=== PATIENT | female | born 1940 ===

== ENCOUNTER 2018-06-15 06:25 | Observation (INO) | payer MEDICARE, MEDICAID ==
[2018-06-15 06:57] VITALS: BMI 30.2
--- NOTE | 2018-06-15 08:24 | CP.PCM.CON ---
History of Present Illness - History of Present Illness History of Present Illness: Orthopedic consultation Dr. Chao 77F complains of right shoulder pain after fall in [place] 06/06/2018, found to have proximal humerus fracture seen in [facility]. She comes to the ER today complaining continued shoulder pain. RHD. Denies numbness/tingling. Denies Cp/SOB/dizziness. PMH: HTN, DM PSH: TKR NKDA Review of Systems - Review of Systems All systems: reviewed and no additional remarkable complaints except - Musculoskeletal Musculoskeletal: As Per HPI Past Patient History - Past Medical History & Family History Past Medical History?: Yes Past Family History: Reviewed and not pertinent - Past Social History Smoking Status: Never Smoked - CARDIAC Hx Hypertension: Yes - ENDOCRINE/METABOLIC Hx Diabetes Mellitus Type 2: Yes - PSYCHIATRIC Hx Substance Use: No - SURGICAL HISTORY Hx Joint Replacement: Yes (TKR) Meds Allergies/Adverse Reactions: Allergies Allergy/AdvReac Type Severity Reaction Status Date / Time No Known Allergies Allergy Verified 06/15/18 06:57 Physical Exam - Constitutional Appears: Well, No Acute Distress - Head Exam Head Exam: ATRAUMATIC - Neck Exam Neck exam: Positive for: Full Rom, Normal Inspection - Respiratory Exam Respiratory Exam: NORMAL BREATHING PATTERN - Cardiovascular Exam Additional comments: +radial pulse RUE - Expanded Upper Extremities Exam Right Shoulder exam: ecchymosis, swelling, tenderness Neuro motor exam: finger 2-5 abduction intact, thumb abduction, thumb IP flexion intact, thumb opposition intact, wrist extension intact Neurosensory exam: median nerve intact, radial nerve intact, ulnar nerve intact (sensation to ax n distrib lateral shoulder intact) Vascular exam: radial pulse - Neurological Exam Neurological exam: Alert, Oriented x3 - Psychiatric Exam Psychiatric exam: Normal Affect, Normal Mood - Skin Skin Exam: Dry, Intact, Warm Additional comments: noted ecchymosis to RUE Results - Vital Signs Recent Vital Signs: Last Vital Signs Temp 98.9 F 06/15/18 06:35 Pulse 96 H 06/15/18 06:35 Resp 18 06/15/18 06:35 BP 172/82 H 06/15/18 07:22 Pulse Ox 98 06/15/18 06:35 - Impressions Impression: atient Name / ID : MEHNAZ JOYNER Miguel / [id number] Exam Date : 06/08/2018 16:23:47 ( Approved ) Study Comment : Sex / Age : F / 77Y Creator : Julia Tapia MD Dictator : Julia Tapia MD Behavioral Technician : Perforator : Julia Tapia MD Approver2 : Report Date : 06/08/2018 16:35:19 My Comment : Date of service: 06/08/2018 PROCEDURE: Radiographs of the Right Shoulder HISTORY: previous fall COMPARISON: No prior. FINDINGS: BONES: There is an acute comminuted impacted fracture in the neck of the humerus. Bone alignment is normal. There is diffuse bone demineralization. JOINTS: Glenohumeral and acromioclavicular joints preserved. Mild degenerative osteoarthritis. SOFT TISSUES: Normal. OTHER FINDINGS: None. IMPRESSION: Acute comminuted impacted fracture in the neck of the humerus without evidence for dislocation. Assessment & Plan (1) Closed fracture of neck of right humerus Assessment and Plan: case d/w Dr. chao for total shoulder replacement today pending med/cardiac optimization labs/imaging/echo/ekg pending NPO T&C Status: Acute
--- NOTE | 2018-06-15 08:25 | ED PDOC ---
Upper Extremity Pain/Injury Time Seen by Provider: 06/15/18 07:22 Chief Complaint (Nursing): Upper Extremity Problem/Injury Chief Complaint (Provider): Upper Extremity Problem/Injury History Per: Family History/Exam Limitations: no limitations Onset/Duration Of Symptoms: Days (x7) Current Symptoms Are (Timing): Still Present Additional Complaint(s): 77 year old female with past history of diabetes and hypertension, arrives to the emergency department with her family, for severe pain of right shoulder. =Patient sustained a right humeral neck fracture status post fall injury on 06/08/18 in which she was evaluated at [facility]. The family states that she was seen by orthopedist's office on 06/12/18 then told to come to the ED if pain is severe and unable to control at home. Patient, otherwise, offers no additional complaints. PCP: Dr. Artuor Cohen Ortho: Dr. Chao Past Medical History Reviewed: Historical Data, Nursing Documentation, Vital Signs Vital Signs: Last Vital Signs Temp 98.9 F 06/15/18 06:35 Pulse 96 H 06/15/18 06:35 Resp 18 06/15/18 06:35 BP 172/82 H 06/15/18 07:22 Pulse Ox 98 06/15/18 06:35 - Medical History PMH: Diabetes, HTN - Surgical History Surgical History: Denies: No Surg Hx Other surgeries: bilateral knees - Family History Family History: States: Unknown Family Hx - Social History Current smoker - smoking cessation education provided: No Alcohol: None Drugs: Denies - Immunization History Hx Tetanus Toxoid Vaccination: No Hx Influenza Vaccination: No Hx Pneumococcal Vaccination: No - Home Medications Home Medications: Ambulatory Orders Medication Instructions Recorded Glipizide [Glipizide Xl] 5 mg PO DAILY 06/08/18 Metoprolol Succinate [Metoprolol 100 mg PO DAILY 06/08/18 Succinate Xl] Nebivolol [Bystolic] 10 mg PO DAILY 06/08/18 Omeprazole 20 mg PO DAILY 06/08/18 Lisinopril/Hydrochlorothiazide 1 tab PO DAILY 06/15/18 [Lisinopril-Hctz 20-12.5 mg Tab] - Allergies Allergies/Adverse Reactions: Allergies Allergy/AdvReac Type Severity Reaction Status Date / Time No Known Allergies Allergy Verified 06/15/18 06:57 Review of Systems ROS Statement: Except As Marked, All Systems Reviewed And Found Negative Musculoskeletal: Positive for: Shoulder Pain (right-sided) Physical Exam - Reviewed Nursing Documentation Reviewed: Yes Vital Signs Reviewed: Yes - Physical Exam Appears: Positive for: Non-toxic, No Acute Distress Skin: Positive for: Warm, Dry Eye Exam: Positive for: EOMI Neck: Positive for: Decreased ROM Respiratory: Positive for: Normal Breath Sounds Pulses-Radial (R): 3+/4+ Gastrointestinal/Abdominal: Positive for: Soft. Negative for: Tenderness Pelvic Exam: Negative for: External Exam Normal Extremity: Positive for: Tenderness (right shoulder with limited ROM secondary to pain), Swelling (and ecchymosis to rigth upper arm and shoulder). Negative for: Normal ROM (right arm) Neurologic/Psych: Positive for: Alert, Oriented (x3). Negative for: Motor/Sensory Deficits - Laboratory Results Result Diagrams: 06/15/18 08:20 - ECG O2 Sat by Pulse Oximetry: 98 (RA) Pulse Ox Interpretation: Normal Medical Decision Making Medical Decision Making: Initial Impression: Right Humeral neck fracture Initial Plan: * Labs * EKG * CXR Time: 799 --Dr. Chao paged for consult. Spoke to ortho Kandice BURGOS, who will see patient at bedside. Time: 811 --Case discussed with hospitalist, Dr. Ryder, for admission. Time: 846 --Discussed case with Dr. Chao who recommends CT shoulder and admission for orthopedic evaluation. He already spoke with Dr. Cohen and is agreeable to plan with additional request for consult with Dr. Medeiros for cardiology. Scribe Attestation: Documented by Radha Aquino, acting as a scribe for Veena Lopez MD. Provider Scribe Attestation: All medical record entries made by the Scribe were at my direction and personally dictated by me. I have reviewed the chart and agree that the record accurately reflects my personal performance of the history, physical exam, medical decision making, and the department course for this patient. I have also personally directed, reviewed, and agree with the discharge instructions and disposition. Disposition - Clinical Impression Clinical Impression: Closed fracture of neck of right humerus - Patient ED Disposition Is Patient to be Admitted: Yes Discussed With : Darrick Ryder Doctor Will See Patient In The: ED Counseled Patient/Family Regarding: Studies Performed, Diagnosis - Disposition Disposition Time: 08:00 Condition: FAIR - Pt Status Changed To: Hospital Disposition Of: Inpatient - Admit Certification Admit to Inpatient:: After my assessment, the patient will require hospitalization for at least two midnights. This is because of the severity of symptoms shown, intensity of services needed, and/or the medical risk in this patient being treated as an outpatient. - POA Present On Arrival: Falls Or Trauma
[2018-06-15 08:32] LABS: BASO % 0.5 % (0.0-2.0); EOS # 0.1 K/uL (0.0-0.7); EOS % 1.7 % (0.0-4.0); HEMOGLOBIN 9.9 g/dL (12.0-16.0); MEAN CELL VOLUME 83.4 fl (81.0-99.0); MEAN CORPUSCULAR HEMOGLOBIN 27.3 pg (27.0-31.0); MEAN CORPUSCULAR HGB CONC 32.8 g/dL (33.0-37.0); MEAN PLATELET VOLUME 8.8 fl (7.2-11.7); MONO # 0.5 K/uL (0.0-0.8); MONO % 6.9 % (0.0-10.0); NEUT # 6.1 K/uL (1.8-7.0); NEUT % 77.9 % (50.0-75.0); RBC 3.62 Mil/uL (3.80-5.20); RED CELL DISTRIBUTION WIDTH 15.2 % (11.5-14.5); WHITE BLOOD COUNT 7.9 K/uL (4.8-10.8)
[2018-06-15 08:44] LABS: PROTHROMBIN TIME 11.9 Seconds (9.8-13.1)
[2018-06-15 08:46] LABS: PARTIAL THROMBOPLASTIN TIME 27.6 Seconds (25.6-37.1)
[2018-06-15 09:25] LABS: SQUAMOUS EPITHIAL 4 /hpf (0-5); URINE BACTERIA RARE (<OCC); URINE BILIRUBIN NEGATIVE (NEGATIVE); URINE BLOOD NEGATIVE (NEGATIVE); URINE CLARITY CLEAR (Clear); URINE COLOR STRAW (YELLOW); URINE GLUCOSE (UA) NEG (NEGATIVE); URINE LEUKOCYTE ESTERASE NEG Leu/uL (Negative); URINE PROTEIN NEGATIVE (NEGATIVE); URINE UROBILINOGEN 0.2-1.0 mg/dL (0.2-1.0)
[2018-06-15 09:42] LABS: BLOOD UREA NITROGEN 20 mg/dl (7-17); CALCIUM 9.3 mg/dL (8.4-10.2); GFR NON-AFRICAN AMERICAN 54
--- NOTE | 2018-06-15 10:30 | CP.PCM.CON ---
History of Present Illness - History of Present Illness History of Present Illness: This 77-year-old lady with a history of diabetes and hypertension for more than 12 years who is quite active (cannot walk more than 8-10 blocks and climb 4 flights of stairs to her apartment on couple of occasions every day without any difficulty) has come to the hospital after having suffered a fall approximately 10 days back during which she sustained a right shoulder injury. X-rays have shown evidence of a fracture humeral head on the right side. This consultation was requested as part of her evaluation prior to surgery. The patient has no prior hospitalization for cardiac or abdominal issues. There is no prior history of chest pain or myocardial infarction or symptoms of congestive cardiac failure. She does not take aspirin every day. She has taken her antihypertensives and antidiabetic medications regularly and reports that her blood pressure and blood sugar levels are fairly well controlled. Physical examination shows an elderly lady who is alert awake coherent afebrile and is able to breathe comfortably at 14 breaths/min while lying flat in bed and carry on a conversation. Her heart rate was 82 bpm regular and her blood pressure was 152/74 mmHg. Her jugular venous pressure was not elevated and there was no edema over her lower extremity. The pedal pulses were well felt. There were no carotid bruits. The apex was not palpable. The first and second heart sounds were normal. There was no murmur or gallop. There were no rales. Her abdomen was soft and liver and spleen are not palpable. Her electrocardiogram showed sinus rhythm with poor progression of R wave from V1 to V3. No ST-T abnormalities were detected. Lab data shows a normocytic normochromic anemia with a hemoglobin of 9.9 g probably due to bleeding at fracture site. Her BUN/creatinine were normal and electrolytes are normal. Impression: fractured right humeral head. Diabetes mellitus and hypertension. The patient is stable to proceed with the planned surgery under necessary anesthesia. Past Patient History - Past Medical History & Family History Past Medical History?: Yes Past Family History: Reviewed and not pertinent - Past Social History Alcohol: None Drugs: Denies - CARDIAC Hx Hypertension: Yes - ENDOCRINE/METABOLIC Hx Endocrine Disorders: Yes - PSYCHIATRIC Hx Substance Use: No - SURGICAL HISTORY Hx Joint Replacement: Yes (TKR) Meds Allergies/Adverse Reactions: Allergies Allergy/AdvReac Type Severity Reaction Status Date / Time No Known Allergies Allergy Verified 06/15/18 06:57 Results - Vital Signs Recent Vital Signs: Last Vital Signs Temp 97.6 F 06/15/18 09:36 Pulse 80 06/15/18 09:36 Resp 20 06/15/18 09:36 BP 146/76 06/15/18 09:36 Pulse Ox 98 06/15/18 09:36 - Labs Result Diagrams: 06/15/18 08:20 06/15/18 08:42 Labs: Laboratory Results - last 24 hr 06/15/18 06/15/18 06/15/18 08:10 08:20 08:20 WBC 7.9 RBC 3.62 L Hgb 9.9 L Hct 30.2 L MCV 83.4 MCH 27.3 MCHC 32.8 L RDW 15.2 H Plt Count 281 MPV 8.8 Neut % (Auto) 77.9 H Lymph % (Auto) 13.0 L [place] % (Auto) 6.9 Eos % (Auto) 1.7 Baso % (Auto) 0.5 Neut # (Auto) 6.1 Lymph # (Auto) 1.0 [place] # (Auto) 0.5 Eos # (Auto) 0.1 Baso # (Auto) 0.0 PT 11.9 INR 1.0 APTT 27.6 Sodium Potassium Chloride Carbon Dioxide Anion Gap BUN Creatinine Est GFR ( Amer) Est GFR (Non-Af Amer) Random Glucose Calcium Urine Color Urine Clarity Urine pH Ur Specific [place] Urine Protein Urine Glucose (UA) Urine Ketones Urine Blood Urine Nitrate Urine Bilirubin Urine Urobilinogen Ur Leukocyte Esterase Urine RBC (Auto) Urine Microscopic WBC Ur Squamous Epith Cells Urine Bacteria Blood Type AB POSITIVE Blood Type Confirm Antibody Screen Negative Crossmatch See Detail BBK History Checked No verified bt 06/15/18 06/15/18 06/15/18 08:42 08:45 09:05 WBC RBC Hgb Hct MCV MCH MCHC RDW Plt Count MPV Neut % (Auto) Lymph % (Auto) [place] % (Auto) Eos % (Auto) Baso % (Auto) Neut # (Auto) Lymph # (Auto) [place] # (Auto) Eos # (Auto) Baso # (Auto) PT INR APTT Sodium 138 Potassium 4.9 Chloride 105 Carbon Dioxide 25 Anion Gap 13 BUN 20 H Creatinine 1.0 Est GFR ( Amer) > 60 Est GFR (Non-Af Amer) 54 Random Glucose 96 Calcium 9.3 Urine Color Straw Urine Clarity Clear Urine pH 8.0 Ur Specific [place] 1.011 Urine Protein Negative Urine Glucose (UA) Neg Urine Ketones Negative Urine Blood Negative Urine Nitrate Negative Urine Bilirubin Negative Urine Urobilinogen 0.2-1.0 Ur Leukocyte Esterase Neg Urine RBC (Auto) 1 Urine Microscopic WBC 1 Ur Squamous Epith Cells 4 Urine Bacteria Rare Blood Type Blood Type Confirm AB POSITIVE Antibody Screen Crossmatch BBK History Checked
--- NOTE | 2018-06-15 10:40 | CP.PCM.HP ---
History of Present Illness - History of Present Illness History of Present Illness: CC: Right shoulder pain 77 yo female seen in the ED with PMHx of diabetes and hypertension (>12 years) for right shoulder injury. Patient states on Jun 08 while going up the stairs she had sustained a fall and had immediate right shoulder pain. Patient has been following up with Dr. Chao as outpatient. Patient denies trauma anywhere else. Denies losing consciousness. States she has been wearing an arm supporter for the last ten days. Patients daughter states x-rays show fracture of humeral head on the right upper extremity. Patient admits to being NPO. Patient denies taking daily blood thinners. Admits to seeing her PMD regularly. Patient admits to being able to walk a couple of blocks without any difficulty. Denies seeing a cottrell operator in the past; denies heart disease. Denies any recent f/n/v/sob/cp/palpitations/diarrhea/constipation/headache. PMD: Dr. Arturo Cohen Ortho: Dr. Chao Pmhx: Htn, DM Pshx: Total knee replacement b/l Allergies: Denies Social hx: denies smoking or drinking alcohol Present on Admission - Present on Admission Any Indicators Present on Admission: No History of DVT/PE: No History of Uncontrolled Diabetes: No Review of Systems - Constitutional Constitutional: As Per HPI. absent: Chills, Fever, Weakness Past Patient History - Past Medical History & Family History Past Medical History?: Yes Past Family History: Reviewed and not pertinent - Past Social History Alcohol: None Drugs: Denies - CARDIAC Hx Hypertension: Yes - ENDOCRINE/METABOLIC Hx Endocrine Disorders: Yes - PSYCHIATRIC Hx Substance Use: No - SURGICAL HISTORY Hx Joint Replacement: Yes (TKR) Meds Allergies/Adverse Reactions: Allergies Allergy/AdvReac Type Severity Reaction Status Date / Time No Known Allergies Allergy Verified 06/15/18 06:57 Physical Exam - Constitutional Appears: Well, Non-toxic, No Acute Distress - Head Exam Head Exam: ATRAUMATIC, NORMOCEPHALIC - Eye Exam Eye Exam: EOMI, Normal appearance Pupil Exam: NORMAL ACCOMODATION - ENT Exam ENT Exam: Mucous Membranes Moist - Respiratory Exam Respiratory Exam: Clear to Auscultation Bilateral. absent: Rales, Rhonchi, Wheezes - Cardiovascular Exam Cardiovascular Exam: REGULAR RHYTHM, +S1, +S2 - GI/Abdominal Exam GI & Abdominal Exam: Normal Bowel Sounds - Expanded Upper Extremities Exam Right Shoulder exam: ecchymosis, tenderness Upper Arm exam: ecchymosis, erythema Elbow exam: ecchymosis Forearm Wrist exam: ecchymosis Results - Vital Signs Recent Vital Signs: Last Vital Signs Temp 97.6 F 06/15/18 09:36 Pulse 80 06/15/18 09:36 Resp 20 06/15/18 09:36 BP 146/76 06/15/18 09:36 Pulse Ox 98 06/15/18 09:36 - Labs Result Diagrams: 06/15/18 08:20 06/15/18 08:42 Labs: Laboratory Results - last 24 hr 06/15/18 06/15/18 06/15/18 08:10 08:20 08:20 WBC 7.9 RBC 3.62 L Hgb 9.9 L Hct 30.2 L MCV 83.4 MCH 27.3 MCHC 32.8 L RDW 15.2 H Plt Count 281 MPV 8.8 Neut % (Auto) 77.9 H Lymph % (Auto) 13.0 L [place] % (Auto) 6.9 Eos % (Auto) 1.7 Baso % (Auto) 0.5 Neut # (Auto) 6.1 Lymph # (Auto) 1.0 [place] # (Auto) 0.5 Eos # (Auto) 0.1 Baso # (Auto) 0.0 PT 11.9 INR 1.0 APTT 27.6 Sodium Potassium Chloride Carbon Dioxide Anion Gap BUN Creatinine Est GFR ( Amer) Est GFR (Non-Af Amer) Random Glucose Calcium Urine Color Urine Clarity Urine pH Ur Specific [place] Urine Protein Urine Glucose (UA) Urine Ketones Urine Blood Urine Nitrate Urine Bilirubin Urine Urobilinogen Ur Leukocyte Esterase Urine RBC (Auto) Urine Microscopic WBC Ur Squamous Epith Cells Urine Bacteria Blood Type AB POSITIVE Blood Type Confirm Antibody Screen Negative Crossmatch See Detail BBK History Checked No verified bt 06/15/18 06/15/18 06/15/18 08:42 08:45 09:05 WBC RBC Hgb Hct MCV MCH MCHC RDW Plt Count MPV Neut % (Auto) Lymph % (Auto) [place] % (Auto) Eos % (Auto) Baso % (Auto) Neut # (Auto) Lymph # (Auto) [place] # (Auto) Eos # (Auto) Baso # (Auto) PT INR APTT Sodium 138 Potassium 4.9 Chloride 105 Carbon Dioxide 25 Anion Gap 13 BUN 20 H Creatinine 1.0 Est GFR ( Amer) > 60 Est GFR (Non-Af Amer) 54 Random Glucose 96 Calcium 9.3 Urine Color Straw Urine Clarity Clear Urine pH 8.0 Ur Specific [place] 1.011 Urine Protein Negative Urine Glucose (UA) Neg Urine Ketones Negative Urine Blood Negative Urine Nitrate Negative Urine Bilirubin Negative Urine Urobilinogen 0.2-1.0 Ur Leukocyte Esterase Neg Urine RBC (Auto) 1 Urine Microscopic WBC 1 Ur Squamous Epith Cells 4 Urine Bacteria Rare Blood Type Blood Type Confirm AB POSITIVE Antibody Screen Crossmatch BBK History Checked Assessment & Plan - Assessment and Plan (Free Text) Assessment: 77 year old female patient, with PMHx of DM, HTN seen and evaluated in the ED s/p right humeral fracture 06/08. Patient for OR today with Dr. Chao Plan: 1) Right shoulder pain - Acute - Plan for OR today for R total shoulder replacement with Dr. Chao - Patient medically optimized for surgery - Cardiology consult ordered; Dr. Medeiros cleared the patient for surgery. - CBC, CXR, EKG reviewed - Blood type AB Positive Hgb 9.9 - Upper extremity CT ordered and reviewed; comminuted fracture of humeral head and neck - NPO status confirmed 2) DMII - Chronic - HgA1c Ordered - C/w glipizide 3) HTN - Chronic -C/w lisinopril/hctz 4) DVT prophylaxis: -SCDs
--- NOTE | 2018-06-15 10:54 | CT ---
Date of service: 06/15/2018 PROCEDURE: Right upper extremity CT HISTORY: right humerus fracture COMPARISON: None. TECHNIQUE: 2.5 mm axial acquisition and display. Coronal and sagittal reconstructions. Dose report (mGy-cm): 1379.31 FINDINGS: Impacted, comminuted fracture involving the right humeral neck and head. Major fracture fragments are anatomically aligned. Small fracture fragments reside in the joint space between the glenoid and humeral head. Additional vol stent fracture fragments affect the greater tuberosity. Additional fracture fragments are seen interposed between the superior aspect of the glenoid and the adjacent acromioclavicular joint. Soft tissue swelling identified. Joint effusion/hemarthrosis tests to the acuity of fracture. Preservation of the acromioclavicular joint. IMPRESSION: Impacted, comminuted fracture affecting right humeral head and neck. Additional information provided above.
--- NOTE | 2018-06-15 15:08 | RAD ---
Date of service: 06/15/2018 HISTORY: preop COMPARISON: No prior. TECHNIQUE: Chest PA and lateral FINDINGS: LUNGS: No active pulmonary disease. PLEURA: No significant pleural effusion identified. No pneumothorax apparent. CARDIOVASCULAR: Calcific atherosclerotic changes are seen related to the thoracic aorta. Normal cardiac size. No pulmonary vascular congestion. OSSEOUS STRUCTURES: Heterotopic bone suggestive of callus is seen related to fracture of the proximal right humerus. VISUALIZED UPPER ABDOMEN: Normal. OTHER FINDINGS: None. IMPRESSION: No acute cardiopulmonary disease. Callus formation is question developing related to proximal right humeral fracture.
--- NOTE | 2018-06-15 16:27 | CARD ---
APPROVED REPORT Date of service: 06/15/2018 EKG Measurement Heart [id number] <Conclusion> Normal sinus rhythm Normal ECG
--- NOTE | 2018-06-15 16:32 | CARD ---
APPROVED REPORT Date of service: 06/15/2018 EKG Measurement Heart [id number] <Conclusion> Normal sinus rhythm Cannot rule out Anterior infarct, age undetermined Abnormal ECG
--- NOTE | 2018-06-15 16:44 | CARD ---
APPROVED REPORT Date of service: 06/15/2018 EXAM: Two-dimensional and M-mode echocardiogram with Doppler and color Doppler. Other Information Quality : GoodRhythm : NSR INDICATION Hypertension/HCVD 2D DIMENSIONS IVSd1.00 (0.7-1.1cm)LVDd4.43 (3.9-5.9cm) LVOT Diameter2.32 (1.8-2.4cm)PWd1.18 (0.7-1.1cm) IVSs0.94 (0.8-1.2cm)LVDs3.98 (2.5-4.0cm) FS (%) 10.0 %PWs0.81 (0.8-1.2cm) M-Mode DIMENSIONS Left Atrium (MM)3.18 (2.5-4.0cm)IVSd1.00 (0.7-1.1cm) Aortic Root2.74 (2.2-3.7cm)LVDd3.71 (4.0-5.6cm) PWd1.24 (0.7-1.1cm)IVSs1.35 cm FS (%) 28 %LVDs2.68 (2.0-3.8cm) PWs1.26 cm Aortic Valve AoV Peak Qjuvgbss778.3cm/sAoV VTI30.6cmAO Peak GR.7mmHg LVOT Peak Kiwfsoxd08.7cm/sLVOT VTI23.09cmAO Mean GR.5mmHg CEM (VMAX)1.98dg4GDA (VTI)1.86cm2 Mitral Valve MV E Xgnzukud37.0cm/sMV DECEL POWW564iiCZ A Gjbnjdrc669.8cm/s MV BKE001qaA/A ratio0.7MVA (PHT)2.00cm2 TDI Lateral E' Peak V4.81cm/sMedial E' Peak V6.36cm/sE/Lateral E'16.2 E/Medial E'12.3 LEFT VENTRICLE The left ventricle is normal size. There is normal left ventricular wall thickness. The left ventricular systolic function is normal. The estimated ejection fraction is 55-60% No regional wall motion abnormalities noted.. Transmitral Doppler flow pattern is Grade I-abnormal relaxation pattern. No left ventricle thrombus noted on this study. There is no ventricular septal defect visualized. There is no left ventricular aneurysm. There is no mass noted in the left ventricle. RIGHT VENTRICLE The right ventricle is normal size. There is normal right ventricular wall thickness. The right ventricular systolic function is normal. ATRIA The left atrium is moderately dilated. The right atrium size is normal. The interatrial septum is intact with no evidence for an atrial septal defect. AORTIC VALVE The aortic valve is normal in structure. Mild aortic regurgitation is present. There is no aortic valvular stenosis. There is no aortic valvular vegetation. MITRAL VALVE The mitral valve is normal in structure. There is no evidence of mitral valve prolapse. There is no mitral valve stenosis. There is mild mitral valve regurgitation noted. TRICUSPID VALVE The tricuspid valve is normal in structure. There is mild tricuspid valve regurgitation noted. RVSP is calculated at 30 mm Hg. There is no tricuspid valve prolapse or vegetation. There is no tricuspid valve stenosis. PULMONIC VALVE The pulmonary valve is normal in structure. There is no pulmonic valvular regurgitation. There is no pulmonic valvular stenosis. GREAT VESSELS The aortic root is normal in size. The ascending aorta is normal in size. The pulmonary artery is normal. The IVC is normal in size and collapses >50% with inspiration. PERICARDIAL EFFUSION There is no pericardial effusion. There is no pleural effusion. <Conclusion> The estimated ejection fraction is 55-60% Transmitral Doppler flow pattern is Grade I-abnormal relaxation pattern. The left atrium is moderately dilated. Mild aortic regurgitation is present. There is mild mitral valve regurgitation noted. There is mild tricuspid valve regurgitation noted. RVSP is calculated at 30 mm Hg. The IVC is normal in size and collapses >50% with inspiration.
[2018-06-15] MEDS ORDERED: Lactated Ringer's 1,000 ML IV ONE (16:45)
[2018-06-15] MEDS ORDERED: Propofol 10 mg/ml Inj (20 ML) ONE (16:53)
[2018-06-15] MEDS ORDERED: Rocuronium 10 mg/ml (5 ml) ONE (16:54)
[2018-06-15] MEDS ORDERED: Succinylcholine Chloride 20 mg/ml Syr (5 ml) IV ONE (16:54)
[2018-06-15] MEDS ORDERED: Sevoflurane - Inhalation Anesthetic Liq (250 ml) ONE (16:55)
[2018-06-15] MEDS ORDERED: ePHEDrine 50 mg/ml Inj ONE (17:11)
[2018-06-15] MEDS ORDERED: Neostigmine 1:1000 (1 mg/ml) Inj ONE (17:36)
[2018-06-15] MEDS ORDERED: Labetalol 5mg/ml (4ml) ONE (17:37)
[2018-06-15] MEDS ORDERED: Lactated Ringer's 1,000 ML IV SCH (18:00)
--- NOTE | 2018-06-15 18:06 | PCM.SURG1 ---
Surgeon's Initial Post Op Note - Surgeon's Notes Surgeon: Ara Chao MD Hall Worker: Marvin KELLEY Type of Anesthesia: General Endo Anesthesia Administered By: Dr. Luna Pre-Operative Diagnosis: Right humeral neck fracture Operative Findings: same, noted significant swelling and ecchymosis to right upper extremity. Open reduction/replacement aborted today due to swelling and low h/h Post-Operative Diagnosis: same Operation Performed: 1. closed reduction right proximal humerus fracture. 2. interpretation of fluroscopic imaging. 3. application of shoulder immobilizer Specimen/Specimens Removed: none Estimated Blood Loss: EBL {In ML}: 0 Blood Products Given: N/A Drains Used: No Drains Post-Op Condition: Fair Date of Surgery/Procedure: 06/15/18 Time of Surgery/Procedure: 18:07
[2018-06-15] MEDS ORDERED: HYDROmorphone 0.5 mg/0.5 ml ISec IVP PRN (18:29)
[2018-06-15 19:16] VITALS: RESP 19; TEMP 98.6
[2018-06-15 19:55] VITALS: BP 136/68; PULSE 90; O2SAT 97
[2018-06-16] MEDS ORDERED: Pantoprazole 40 mg EC Tab PO SCH (09:00)
[2018-06-16] MEDS ORDERED: GlipiZIDE 5 mg SR Tab PO SCH (09:00)
[2018-06-16] MEDS ORDERED: Metoprolol Succinate 100 mg XL Tab PO SCH (09:00)
[2018-06-16] MEDS ORDERED: Patient's Own Med (Nebivolol [Bystolic] 10 MG) PO SCH (09:00)
[2018-06-16] MEDS ORDERED: Patient's Own Med (Lisinopril/Hydrochlorothiazide [Lisinopril-Hctz 20-12.5 Mg Tab] 1 TAB) PO SCH (09:00)
[2018-06-16] MEDS ORDERED: Calcium-Vit D 500 mg-200 Units Tab UD PO SCH (09:00)
[2018-06-16] MEDS ORDERED: Cholecalciferol 1,000 INTLU TAB PO SCH (09:00)
--- NOTE | 2018-06-16 09:29 | RAD ---
Date of service: 06/15/2018 PROCEDURE: Radiographs of the Right Shoulder HISTORY: post op closed reduction right shoulder COMPARISON: Right shoulder CT without contrast 06/15/2018. FINDINGS: BONES: Comminuted impacted fractures not significantly changed compared prior CT 06/15/2018. Impaction is again seen at the proximal right humeral metaphysis but there is no dislocation once again nor subluxation. The acromioclavicular joint appears intact though degenerated with glenohumeral joint slightly widened potentially the as a function of effusion/hemarthrosis. JOINTS: As above. SOFT TISSUES: Normal. OTHER FINDINGS: None. IMPRESSION: Comminuted fracture proximal right humeral metaphysis with impaction again evident, not significantly changed in the interval. Widening of the glenohumeral joint may indicate an effusion/hemarthrosis. No new interval fracture evident.
--- NOTE | 2018-06-17 00:19 | OP ---
PROCEDURE DATE: 06/15/2018 PREOPERATIVE DIAGNOSIS: Displaced comminuted proximal humerus fracture. POSTOPERATIVE DIAGNOSIS: Displaced comminuted proximal humerus fracture. PROCEDURE: 1. Closed reduction and manipulation of the proximal humerus fracture. 2. Application of shoulder immobilizer. 3. Positioning of fluoroscope, interpretation of video images. SURGEON: Ruben Chao MD BUYER INTERN: KASSIE Call, certified registered nursing data control assistant. ANESTHESIA: General endotracheal anesthesia. COMPLICATIONS: None. DRAINS: None. OPERATIVE INDICATIONS: Nadine Sewell is a 77-year-old woman who presents with displaced fracture of the right shoulder. Pros, cons, risks and benefits of closed reduction were discussed; the possibility of later open reduction or shoulder arthroplasty were discussed; the possibility of mechanical failure, infection, thromboembolic disease were discussed and the concept that a secondary surgery may be indicated, informed consent was obtained from the patient's son and from the patient. OPERATIVE PROCEDURE: After having obtained informed consent; after having identified side, site and procedure and a critical pause/time-out; after the satisfactory induction of the anesthetic; the patient was identified as Nadine Sewell in the supine position with all bony prominences well padded. Under the surgeon's direction, the fluoroscope was positioned, video images were generated, therapeutic decisions were made therefrom. The fracture was reduced by stabilizing the scapula and placing the upper extremity in total elevation. In this fashion, the proximal humeral fracture that was comminuted was placed in acceptable position and verification of position was offered on AP and lateral and oblique views. This having been accomplished, the position was found to be acceptable. A shoulder immobilizer was applied. The patient was transferred carefully from the operating table to the stretcher having tolerated the procedure well. Ruben Chao MD
== END 2018-06-15 21:00 | disposition home or self-care (01) ==
LOC: H.ER 06:25 → H.ERHOLD 08:01 → INTOOBSV 08:01 → H.MEDSURG1 09:43
PROVIDERS: ADMIT Hospitalist; ATTEND Hospitalist
DX: S42.201A Unspecified fracture of upper end of right humerus, initial encounter for closed fracture (principal); W19.XXXA Unspecified fall, initial encounter; Z96.653 Presence of artificial knee joint, bilateral; D50.0 Iron deficiency anemia secondary to blood loss (chronic); E11.9 Type 2 diabetes mellitus without complications; I10 Essential (primary) hypertension; Z79.84 Long term (current) use of oral hypoglycemic drugs; Z79.899 Other long term (current) drug therapy
CPT/HCPCS: 23605; 71046; 73020; 73200; 80048; 81003; 82306; 82948; 83036; 85025; 85610; 85730; 86850; 86900; 86920; 93005; 93306; 99284; G0378; J0360; J2001; J2704; J2710; J3010; J7120